=== PATIENT | female | born 1960 | race African-American/Black ===

== ENCOUNTER 2018-02-25 20:26 | Inpatient (IN) | payer MEDICARE, MEDICAID ==
[~2018-02-25] VITALS: Ht 165.1 cm; Wt 33.3 kg
[~2018-02-25 20:26] MED LIST: LAMO50TA3 PO; LEVE1000 PO; LOV40 SQ; [UNRECOGNIZED DRUG - CODE] MC
[2018-02-25] MEDS ORDERED: SODIUM CHLORIDE 0.9% 1000ML BAG (SEPSIS BOLUS) IV ONE (21:45)
[2018-02-25] MEDS ORDERED: LEVOFLOXACIN 750MG PREMIX 150 ML IV ONE (21:45)
[2018-02-25 23:20] LABS: CLARITY URINE TURBID (CLEAR); COLOR URINE DARK YELLOW (YELLOW); KETONES URINE NEGATIVE (NEGATIVE); LEUKOCYTE ESTERASE URINE 3+ (NEGATIVE); NITRITE URINE NEGATIVE (NEGATIVE); OCCULT BLOOD URINE 2+ (NEGATIVE); PROTEIN URINE 1+ (NEGATIVE); SPECIFIC GRAVITY URINE 1.015 (1.005-1.030); UROBILINOGEN URINE 0.2 E.U./dL (0.2-1.0)
[2018-02-25] MEDS ORDERED: DEXTROSE 50% WATER 50ML SYRINGE IV ONE (23:30)
[2018-02-25 23:45] LABS: BASOPHILS % 0.1 % (0.0-2.0); EOSINOPHILS % 0.1 % (0.0-5.0); HEMOGLOBIN. 10.9 g/dL (12.0-16.0); LYMPHOCYTES % 7.9 % (20.0-50.0); MEAN CORPUSCULAR HEMOGLOBIN 29.6 pg (28.0-32.0); MEAN CORPUSCULAR VOLUME 92.4 fL (81.0-99.0); MEAN PLATELET VOLUME 9.2 fl (7.4-10.4); MONOCYTES % 6.1 % (2.0-8.0); NEUTROPHILS % 85.8 % (40.0-76.0); PLATELET 64 x1000/uL (130-400); RED BLOOD CELL COUNT 3.68 mill/uL (4.2-5.4); RED CELL DISTRIBUTION WIDTH 18.1 % (11.6-14.6)
[2018-02-25] MEDS ORDERED: NOREPINEPHRINE 4 MG in DEXT 5% WATER 246 ML IV NR (23:45)
[2018-02-25 23:51] LABS: CHLORIDE 119 mEq/L (98-107)
[2018-02-25 23:53] LABS: INR 1.6; PROTHROMBIN TIME 17.1 sec (9.4-11.6)
[2018-02-26] VITALS (10 sets, daily range): BP systolic 54–115; BP diastolic 18–71
[2018-02-26] MEDS ORDERED: NOREPINEPHRINE 4 MG in DEXT 5% WATER 246 ML IV ONE ×2
[2018-02-26] MEDS ORDERED: PIPERACILLIN/TAZ 3.375G PREMIX 50 ML IV ONE (00:15)
[2018-02-26] MEDS ORDERED: VANCOMYCIN 1 G PREMIX 200 ML IV SCH (00:15)
[2018-02-26] MEDS ORDERED: HYDROCORTISONE SOD SUCCINATE 100 MG/2 ML VIAL IV ONE (01:00)
[2018-02-26] MEDS ORDERED: EPINEPHRINE 1 MG in SODIUM CHLORIDE 0.9% 249 ML IV PRN ×2 (01:00→01:15)
[2018-02-26] MEDS ORDERED: HYDROCORTISONE SOD SUCCINATE 100 MG/2 ML VIAL IV NR (01:15)
[2018-02-26] MEDS ORDERED: SODIUM CHLORIDE 0.9% 1,000 ML IV ONE (01:20)
[2018-02-26] MEDS ORDERED: FLUCONAZOLE 400MG/200ML PREMIX IV ONE (01:30)
[2018-02-26] MEDS ORDERED: ONDANSETRON HCL 4MG/2ML VIAL IV ONE (01:30)
[2018-02-26] MEDS ORDERED: FLUCONAZOLE 400MG/200ML BAG 200 ML IV NR (01:45)
[2018-02-26] MEDS ORDERED: NOREPINEPHRINE 4 MG in DEXT 5% WATER 246 ML IV PRN ×2 (03:15→05:00)
[2018-02-26] MEDS ORDERED: METRONIDAZOLE 250 MG PREMIX 50 ML IV SCH (05:00)
[2018-02-26] MEDS ORDERED: SODIUM CHLORIDE 0.9% 1,000 ML IV SCH (05:00)
[2018-02-26] MEDS ORDERED: SODIUM BICARBONATE 8.4% 1 MEQ/ML 50ML SYR IV NR (05:00)
[2018-02-26] MEDS: EPINEPHRINE 1 MG in SODIUM CHLORIDE 0.9% 249 ML IV PRN ×2 (05:27→09:03)
[2018-02-26] MEDS ORDERED: NOREPINEPHRINE 32 MG in DEXT 5% WATER 468 ML IV PRN (05:30)
[2018-02-26] MEDS ORDERED: SODIUM BICARBONATE 100 MEQ in DEXTROSE 5% WATER 1,000 ML IV SCH (06:00)
[2018-02-26] MEDS ORDERED: METRONIDAZOLE 500 MG PREMIX 100 ML IV SCH (06:00)
[2018-02-26] MEDS ORDERED: DOPAMINE 800MG PREMIX 250 ML IV PRN (06:00)
[2018-02-26 07:59] LABS: BG CARBOXYHEMOGLOBIN 1.1 % (0.5-1.5); BG DEOXYHEMOGLOBIN 71.3 % (0.0-5.0); BG FRACTION INSPIRED OXYGEN 100; BG METHEMOGLOBIN 0.3 % (0.0-1.5); BG OXYGEN SATURATION 27.7 % (92.0-98.5); BG OXYHEMOGLOBIN 27.3 % (94.0-97.0); BG PCO2 68.9 mmHg (35.0-45.0); BG PH < 6.680 (7.350-7.450); BG PO2 30.6 mmHg (75.0-100.0); BG SAMPLE SITE RIGHT BRACHIAL; BG TIDAL VOLUME(mL) 400 mL; BG TOTAL HEMOGLOBIN 8.7 g/dL (12.0-18.0); BG VENT MODE VENT - A/C; BG VENT RATE 14 set
[2018-02-26] MEDS ORDERED: PANTOPRAZOLE SODIUM 40 MG/VIAL IV SCH (09:00)
[2018-02-26] MEDS ORDERED: MEROPENEM 1,000 MG in SODIUM CHLORIDE 0.9% 100 ML IV SCH (09:00)
[2018-02-26] MEDS ORDERED: IPRATROPIUM/ALBUTEROL 0.5-3(2.5)MG/3ML NEB HHN PRN (09:00)
[2018-02-26] MEDS ORDERED: PIPERACILLIN/TAZ 3.375G PREMIX 50 ML IV SCH (10:00)
[2018-02-26] MEDS ORDERED: PIPERACILLIN/TAZ 2.25G PREMIX 50 ML IV SCH (10:00)
[2018-02-26] MEDS ORDERED: EPINEPHRINE 4 MG in SODIUM CHLORIDE 0.9% 246 ML IV PRN (10:30)
[2018-02-26] MEDS ORDERED: MEROPENEM 500MG in NORMAL SALINE 50ML IV SCH (11:00)
[2018-02-26] MEDS ORDERED: IPRATROPIUM/ALBUTEROL 0.5-3(2.5)MG/3ML NEB HHN SCH (12:00)
[2018-02-26] MEDS ORDERED: DEXTROSE 50% WATER 50ML SYRINGE IV ONE (13:03)
[2018-02-26] MEDS ORDERED: SODIUM BICARBONATE 7.5% 0.9 MEQ/ML 50ML SYR IV ONE (13:03)
[2018-02-26] MEDS ORDERED: CALCIUM CHLORIDE 1GM/10ML SYR IV ONE (13:03)
[2018-02-26] MEDS ORDERED: EPINEPHRINE 0.1MG/ML (1:10,000) 10ML SYR ONE ×2 (13:03)
[2018-02-26] MEDS ORDERED: SUCCINYLCHOLINE CHLORIDE 200MG/10ML VIAL IV ONE (13:36)
[2018-02-26] MEDS ORDERED: ETOMIDATE 2MG/ML 10ML VIAL IV ONE (13:36)
[2018-02-26] MEDS ORDERED: NORMAL SALINE 0.9% 10 ML SYR ONE (13:36)
[2018-02-26] MEDS ORDERED: VANCOMYCIN 500 MG PREMIX 100 ML IV SCH (18:00)
== END 2018-02-26 15:47 | disposition expired | DRG 871 ==
LOC: ER 20:26 → EDBEDREQSVC 23:57 → EDBEDREQ 23:59 → MICUSO 02-26 01:37 → EDBEDREQ 02-26 01:39 → ENRESERV 02-26 02:17
PROVIDERS: ADMIT Internal Medicine; ATTEND Internal Medicine
PROC: 5A1935Z Respiratory Ventilation, Less than 24 Consecutive Hours (ICD-10-PCS; principal; 2018-02-25)
PROC: 0BH17EZ Insertion of Endotracheal Airway into Trachea, Via Natural or Artificial Opening (ICD-10-PCS; 2018-02-25)
PROC: 5A12012 Performance of Cardiac Output, Single, Manual (ICD-10-PCS; 2018-02-25)
DX: A41.9 Sepsis, unspecified organism (principal); E43 Unspecified severe protein-calorie malnutrition; G93.40 Encephalopathy, unspecified; J96.01 Acute respiratory failure with hypoxia; K63.1 Perforation of intestine (nontraumatic); R65.21 Severe sepsis with septic shock; Q04.0 Congenital malformations of corpus callosum; D68.9 Coagulation defect, unspecified; K55.9 Vascular disorder of intestine, unspecified; N39.0 Urinary tract infection, site not specified; R18.8 Other ascites; R64 Cachexia; Z68.1 Body mass index [BMI] 19.9 or less, adult; D64.9 Anemia, unspecified; D69.6 Thrombocytopenia, unspecified; E16.2 Hypoglycemia, unspecified; E86.1 Hypovolemia; J44.9 Chronic obstructive pulmonary disease, unspecified; G40.909 Epilepsy, unspecified, not intractable, without status epilepticus; I10 Essential (primary) hypertension; K66.8 Other specified disorders of peritoneum; K76.0 Fatty (change of) liver, not elsewhere classified; N20.0 Calculus of kidney; N28.1 Cyst of kidney, acquired; R62.7 Adult failure to thrive; Z82.49 Family history of ischemic heart disease and other diseases of the circulatory system; Z86.718 Personal history of other venous thrombosis and embolism; Z87.442 Personal history of urinary calculi; Z87.891 Personal history of nicotine dependence; Z93.1 Gastrostomy status; Z98.891 History of uterine scar from previous surgery; Z79.899 Other long term (current) drug therapy; Z88.6 Allergy status to analgesic agent
CPT/HCPCS: 36415; 36600; 70450; 71045; 74176; 80053; 81003; 82375; 82805; 82962; 83605; 84145; 85025; 85610; 87040; 87077; 87086; 87186; 93005; 94002; 94003; 94640; A4216; A6261; C9113; J0330; J1265; J1450; J1720; J1956; J2185; J2405; J2543; J3370; J3490; J7030; J7050; J7060; J7070; A4315